=== PATIENT | female | born 1985 | race Caucasian/White ===

== ENCOUNTER 2020-09-26 18:59 | Emergency (ER) | payer OTHER ==
[2020-09-26] MEDS ORDERED: ONDANSETRON 4 MG (ODT) TAB ONE (22:12)
[2020-09-26] MEDS ORDERED: ACETAMINOPHEN 500 MG TAB ONE (22:12)
[2020-09-26 22:27] LABS: Absolute Lymphocytes (CBC) 0.7 K/uL (0.7-4.9); Basophils % 0.4 % (0-1.3); Hematocrit 43.2 % (36.0-45.0); Lymphocytes % 20.7 % (15.3-44.8); MPV 8.3 fL (7.6-11.3); RBC Red Blood Cell Count 5.02 M/uL (3.86-4.86)
[2020-09-26 22:28] LABS: Protime INR 1.11
[2020-09-26 22:47] LABS: ALT/SGPT 187 U/L (12-78); AST/SGOT 126 U/L (15-37); Albumin 3.5 g/dL (3.4-5.0); Alkaline Phosphatase 86 U/L (45-117); BUN Blood Urea Nitrogen 10 mg/dL (7-18); Bicarbonate 25 mmol/L (21-32); Bilirubin Direct 0.3 mg/dL (0-0.2); Bilirubin Total 0.5 mg/dL (0.2-1.0); Glucose Level 97 mg/dL (74-106); Magnesium 1.9 mg/dL (1.8-2.4); Potassium 3.6 mmol/L (3.5-5.1); Protein, Total 7.6 g/dL (6.4-8.2); Sodium Level 140 mmol/L (136-145); Troponin (Emerg Dept Use Only) < 0.02 ng/mL (0.0-0.045)
[2020-09-26] MEDS ORDERED: NA CHLORIDE 0.9% 500 ML ONE (22:54)
--- NOTE | 2020-09-26 23:37 | EDPHYS ---
Physician Documentation [facility] Name: Denise Ross Age: 34 yrs Sex: Female : 1985 Arrival Date: 09/26/2020 Time: 19:22 Bed 8 Private MD: ED Physician Cesar Krishnamurthy HPI: 09/26 22:00 This 34 yrs old Female presents to ER via Ambulatory with complaints of cp Dizziness - covid +. 22:00 The patient presents with dizziness, lightheadedness. cp 22:00 Onset: The symptoms/episode began/occurred gradually, and became worse today. cp Associated signs and symptoms: Pertinent positives: nausea, cough, Pertinent negatives: abdominal pain, chest pain, shortness of breath, syncope. Severity of symptoms: in the emergency department the symptoms are unchanged despite home interventions. Patient's baseline: Neuro: alert and fully oriented, Motor: no deficits, Ambulation: walks without assistance, Speech: normal. 22:00 Patient reports she and her mother were recently diagnosed with COVID-19. cp Historical: - Allergies: 19:22 No Known Allergies; ll1 - PMHx: 19:22 None; ll1 - PSHx: 19:22 Cholecystectomy; knee sx; ll1 - Immunization history:: Flu vaccine is not up to date. - Social history:: Smoking status: Patient denies any tobacco usage or history of. ROS: 22:05 Constitutional: Positive for chills, Negative for fever, poor PO intake. cp 22:05 Eyes: Negative for injury, pain, redness, and discharge. cp 22:05 Respiratory: Positive for cough, Negative for wheezing. 22:05 Abdomen/GI: Positive for nausea, diarrhea, Negative for abdominal pain, constipation. 22:05 Skin: Negative for rash. 22:05 Neuro: Positive for dizziness, headache, weakness, Negative for syncope. 22:05 All other systems are negative. Exam: 22:10 Constitutional: The patient appears in no acute distress, alert, awake, cp non-diaphoretic, non-toxic, well developed, well nourished, obese. 22:10 Head/Face: Normocephalic, atraumatic. cp 22:10 Eyes: Periorbital structures: appear normal, Conjunctiva: normal, no exudate, no injection, Sclera: no appreciated abnormality, Lids and lashes: appear normal, bilaterally. 22:10 ENT: External ear(s): are unremarkable, Nose: is normal, Mouth: Lips: moist, Oral mucosa: moist, Posterior pharynx: Airway: no evidence of obstruction, patent. 22:10 Neck: ROM/movement: is normal, is supple, without pain, no range of motions limitations, no meningismus. 22:10 Chest/axilla: Inspection: normal, Palpation: is normal, no crepitus, no tenderness. 22:10 Cardiovascular: Rate: normal, Rhythm: regular. 22:10 Respiratory: the patient does not display signs of respiratory distress, Respirations: normal, no use of accessory muscles, no retractions, labored breathing, is not present, Breath sounds: are clear throughout, no decreased breath sounds, no stridor, no wheezing. 22:10 Abdomen/GI: Inspection: abdomen appears normal, Bowel sounds: active, all quadrants, Palpation: abdomen is soft and non-tender, in all quadrants. 22:10 Neuro: Orientation: to person, place \T\ time. Mentation: is normal, Cerebellar function: is grossly normal, Motor: moves all fours, strength is normal, Sensation: is normal. 22:16 ECG was reviewed by the Attending Physician. cp Vital Signs: 19:23 BP 122 / 70; Pulse 102; Resp 18; Temp 101.5; Pulse Ox 97% on R/A; Weight 124.74 kg; ll1 Height 5 ft. 2 in. (157.48 cm); Pain 5/10; 23:50 BP 120 / 66; Pulse 89; Resp 17; Temp 98.7; Pulse Ox 97% on R/A; rv 19:23 Body Mass Index 50.30 (124.74 kg, 157.48 cm) ll1 MDM: 21:29 Patient medically screened. edna 22:00 Differential diagnosis: hypovolemia, idiopathic dizziness, near-syncope, , cp sepsis. 23:35 Data reviewed: vital signs, nurses notes, lab test result(s), EKG, radiologic studies, cp plain films. 23:35 Test interpretation: by ED physician or midlevel provider: ECG, plain radiologic cp studies. ED course: VSS. Patient tolerating po fluids. Patient appears non-toxic. Will discharge to home for continued monitoring. 09/26 21:54 Order name: CBC with Diff; Complete Time: 23:11 cp 09/26 23:11 Interpretation: Normal except: WBC 3.5; RBC 5.02. cp 09/26 21:54 Order name: Basic Metabolic Panel; Complete Time: 23:11 cp 09/26 21:54 Order name: LFT's; Complete Time: 23:11 cp 09/26 21:54 Order name: Magnesium; Complete Time: 23:11 cp 09/26 21:54 Order name: PT-INR; Complete Time: 23:11 cp 09/26 21:54 Order name: Troponin (emerg Dept Use Only); Complete Time: 23:11 cp 09/26 21:54 Order name: XRAY Chest (1 view) cp 09/26 21:54 Order name: EKG; Complete Time: 21:55 cp 09/26 21:54 Order name: Cardiac monitoring; Complete Time: 22:17 cp 09/26 21:54 Order name: EKG - Nurse/Tech; Complete Time: 22:17 cp 09/26 21:54 Order name: IV Saline Lock; Complete Time: 22:17 cp 09/26 21:54 Order name: Labs collected and sent; Complete Time: 22:17 cp 09/26 21:54 Order name: O2 Per Protocol; Complete Time: 22:17 cp 09/26 21:54 Order name: O2 Sat Monitoring; Complete Time: 22:17 cp EC:16 Rate is 93 beats/min. Rhythm is regular. MN interval is normal. QRS interval is normal. cp QT interval is normal. T waves are Inverted in leads III, aVR. Interpreted by me. Reviewed by me. Administered Medications: 22:17 Drug: Zofran (Ondansetron) 4 mg Route: PO; mg2 22:17 Drug: NS 0.9% 500 ml Route: IV; Rate: bolus; Site: right forearm; mg2 23:49 Follow up: IV Status: Completed infusion; IV Intake: 500ml rv 22:18 Drug: Tylenol 1000 mg Route: PO; mg2 23:49 Drug: Tessalon Perle 200 mg Route: PO; rv 23:49 Follow up: Response: Medication administered at discharge. rv Disposition: 09/27 08:44 Co-signature as Attending Physician, Cesar Krishnamurthy MD I agree with the assessment and edna plan of care. Disposition: 09/26/20 23:36 Discharged to Home. Impression: Coronavirus infection, unspecified, Pneumonia due to other specified infectious organisms. - Condition is Stable. - Discharge Instructions: Community-Acquired Pneumonia, Adult, COVID-19. - Prescriptions for Albuterol Sulfate 90 mcg/actuation - inhale 1-2 puff by INHALATION route every 4-6 hours; 1 Inhaler. Zofran 4 mg Oral Tablet - take 1 tablet by ORAL route every 12 hours As needed; 20 tablet. - Medication Reconciliation Form, Thank You Letter, Antibiotic Education, Prescription Opioid Use form. - Follow up: Private Physician; When: 2 - 3 days; Reason: Worsening of condition. - Problem is new. - Symptoms have improved. Signatures: Dispatcher [employer] EDMS Cesar Krishnamurthy MD MD cha Page, Corey, PA PA cp Ben Rico, RN RN mg2 Eric Delaney RN RN rv Gui Blackwood RN RN ll1 Corrections: (The following items were deleted from the chart) 09/26 23:51 23:36 09/26/2020 23:36 Discharged to Home. Impression: Coronavirus infection, rv unspecified; Pneumonia due to other specified infectious organisms. Condition is Stable. Forms are Medication Reconciliation Form, Thank You Letter, Antibiotic Education, Prescription Opioid Use. Follow up: Private Physician; When: 2 - 3 days; Reason: Worsening of condition. Problem is new. Symptoms have improved. cp
--- NOTE | 2020-09-26 23:37 | ER ---
Nurse's Notes [facility] Name: Denise Ross Age: 34 yrs Sex: Female : 1985 Arrival Date: 09/26/2020 Time: 19:22 Bed 8 Private MD: Diagnosis: Coronavirus infection, unspecified;Pneumonia due to other specified infectious organisms Presentation: 09/26 19:23 Coronavirus screen: Client denies travel out of the [place] in the last 14 days. chills, ll1 cough unrelated to allergies, diarrhea, difficulty breathing, fatigue, fever, headache, muscle pain, nausea, runny nose, shaking with chills, shortness of breath, sore throat, Client presents with at least one sign or symptom that may indicate coronavirus-19. Client reports previous positive COVID test result. Ebola Screen: Patient denies travel to an Ebola-affected area in the 21 days before illness onset. Initial Sepsis Screen: Does the patient meet any 2 criteria? HR > 90 bpm. No. Patient's initial sepsis screen is negative. Does the patient have a suspected source of infection? Yes: Productive cough/pneumonia. Risk Assessment: Do you want to hurt yourself or someone else? Patient reports no desire to harm self or others. Onset of symptoms was September 21, 2020. 19:23 Method Of Arrival: Ambulatory ll1 19:23 Acuity: BRIANDA 3 ll1 22:54 Chief complaint: Patient states: dizziness. mg2 Historical: - Allergies: 19:22 No Known Allergies; ll1 - PMHx: 19:22 None; ll1 - PSHx: 19:22 Cholecystectomy; knee sx; ll1 - Immunization history:: Flu vaccine is not up to date. - Social history:: Smoking status: Patient denies any tobacco usage or history of. Screenin:54 Abuse screen: Denies threats or abuse. Denies injuries from another. Nutritional mg2 screening: No deficits noted. Tuberculosis screening: No symptoms or risk factors identified. Fall Risk IV access (20 points). Assessment: 22:45 General: Appears in no apparent distress. comfortable, Behavior is calm, cooperative. mg2 Pain: Denies pain. Neuro: Level of Consciousness is awake, alert, obeys commands, Oriented to person, place, time, situation. Neuro: Reports dizziness. Cardiovascular: Capillary refill < 3 seconds Patient's skin is warm and dry. Respiratory: Reports shortness of breath Airway is patent Respiratory effort is even, unlabored, Respiratory pattern is regular, symmetrical. GI: No signs and/or symptoms were reported involving the gastrointestinal system. : No signs and/or symptoms were reported regarding the genitourinary system. EENT: No signs and/or symptoms were reported regarding the EENT system. Derm: Skin is intact, is healthy with good turgor, Skin is pink, warm \T\ dry. normal. Musculoskeletal: Circulation, motion, and sensation intact. Capillary refill < 3 seconds. Vital Signs: 19:23 BP 122 / 70; Pulse 102; Resp 18; Temp 101.5; Pulse Ox 97% on R/A; Weight 124.74 kg; ll1 Height 5 ft. 2 in. (157.48 cm); Pain 5/10; 23:50 BP 120 / 66; Pulse 89; Resp 17; Temp 98.7; Pulse Ox 97% on R/A; rv 19:23 Body Mass Index 50.30 (124.74 kg, 157.48 cm) ll1 ED Course: 19:22 Patient arrived in ED. ll1 19:23 Arm band placed on. ll1 19:24 Triage completed. ll1 21:22 Cesar Mccollum PA is PHCP. cp 21:22 Cesar Krishnamurthy MD is Attending Physician. cp 21:46 Ben Rico, RAFAT is Primary Nurse. mg2 22:24 XRAY Chest (1 view) In Process Unspecified. EDMS 22:30 Inserted saline lock: 20 gauge in right forearm, using aseptic technique. Blood mg2 collected. 22:54 Patient has correct armband on for positive identification. Door closed. mg2 22:54 No provider procedures requiring assistance completed. mg2 23:50 IV discontinued, intact, bleeding controlled, No redness/swelling at site. Pressure rv dressing applied. Administered Medications: 22:17 Drug: Zofran (Ondansetron) 4 mg Route: PO; mg2 22:17 Drug: NS 0.9% 500 ml Route: IV; Rate: bolus; Site: right forearm; mg2 23:49 Follow up: IV Status: Completed infusion; IV Intake: 500ml rv 22:18 Drug: Tylenol 1000 mg Route: PO; mg2 23:49 Drug: Tessalon Perle 200 mg Route: PO; rv 23:49 Follow up: Response: Medication administered at discharge. rv Intake: 23:49 IV: 500ml; Total: 500ml. rv Outcome: 23:36 Discharge ordered by . cp 23:50 Discharged to home ambulatory. rv 23:50 Condition: good 23:50 Condition: good 23:50 Discharge instructions given to patient, Instructed on discharge instructions, follow up and referral plans. medication usage, Demonstrated understanding of instructions, follow-up care, medications, Prescriptions given X 2. 23:51 Patient left the ED. rv Signatures: Dispatcher [employer] EDMS Cesar Mccollum PA PA cp [place]ose, Michele, RN RAFAT mg2 Eric Delaney RN RN rv Gui Blackwood RN RN ll1
[2020-09-26 23:57] VITALS: O2SAT 97
[2020-09-26 23:59] VITALS: BP 120/66; TEMP 98.7
[2020-09-27] MEDS ORDERED: BENZONATATE 100 MG CAP PO ONE (00:01)
--- NOTE | 2020-09-27 07:57 | RAD REPORT ---
EXAM DESCRIPTION: RAD - Chest Single View - 09/26/2020 10:23 pm CLINICAL HISTORY: SOB, COVID positive COMPARISON: None TECHNIQUE: AP portable chest image was obtained 09/26/2020 10:23 pm . FINDINGS: Lung volumes are low and there is significant respiratory motion artifact. No dense mass o r consolidation. Patchy pneumonia changes are suspected in each lower lung field. Heart and vasculatu re are normal. No measurable pleural effusion and no pneumothorax. No acute bony abnormality seen. No acute aortic findings suspected. IMPRESSION: Shallow inspiration, motion degraded film suspicious for bilateral lower lung field pneu monia. As clinically warranted, repeat imaging can be performed to try to eliminate the motion artifact and more accurately assess lung parenchyma.
== END 2020-09-26 23:51 | disposition home or self-care (01) ==
LOC: ER 18:59
DX: U07.1 COVID-19 (principal); J12.82 Pneumonia due to coronavirus disease 2019
CPT/HCPCS: 36415; 71045; 80048; 80076; 83735; 84484; 85025; 85610; 96360; 96361; 99284; J7040

== ENCOUNTER 2020-09-29 10:59 | Emergency (ER) | payer OTHER ==
--- NOTE | 2020-09-29 11:49 | RAD REPORT ---
EXAM DESCRIPTION: Michael Single View09/29/2020 11:38 am CLINICAL HISTORY: Chest pain COMPARISON: September 26 FINDINGS: [id number] bilateral pulmonary opacities. The heart is normal size IMPRESSION: Mild to moderate bilateral pulmonary opacities probably pneumonia
[2020-09-29 12:05] LABS: Absolute Lymphocytes (CBC) 0.7 K/uL (0.7-4.9); Basophils % 0.3 % (0-1.3); Lymphocytes % 24.1 % (15.3-44.8); MPV 8.6 fL (7.6-11.3); RBC Red Blood Cell Count 4.83 M/uL (3.86-4.86)
[2020-09-29 12:10] LABS: Protime INR 1.05
[2020-09-29 12:25] LABS: ALT/SGPT 236 U/L (12-78); AST/SGOT 147 U/L (15-37); Alkaline Phosphatase 90 U/L (45-117); BUN Blood Urea Nitrogen 8 mg/dL (7-18); Bicarbonate 24 mmol/L (21-32); Bilirubin Direct 0.3 mg/dL (0-0.2); Bilirubin Total 0.6 mg/dL (0.2-1.0); Ferritin 756.4 ng/mL (8-388); Glucose Level 86 mg/dL (74-106); Lipase 232 U/L (73-393); Potassium 3.3 mmol/L (3.5-5.1); Protein, Total 7.1 g/dL (6.4-8.2); Sodium Level 139 mmol/L (136-145); Troponin (Emerg Dept Use Only) < 0.02 ng/mL (0.0-0.045)
[2020-09-29] MEDS ORDERED: NA CHLORIDE 0.9% 1,000 ML ONE (12:59)
[2020-09-29] MEDS ORDERED: ONDANSETRON 4 MG/2 ML VIAL ONE (12:59)
--- NOTE | 2020-09-29 13:58 | RAD REPORT ---
EXAM DESCRIPTION: CT - Chest For Pe Angio - 09/29/2020 1:40 pm CLINICAL HISTORY: sob COMPARISON: None. TECHNIQUE: Dynamically enhanced axial 3 mm thick images of the chest were obtained during administra tion of <100> mL Isovue 370 IV contrast. Coronal and oblique reconstruction images were generated and reviewed. Exam utilizes a protocol for optimal evaluation of pulmonary arterial tree. Maximum intensity projections 3D imaging was utilized All CT scans are performed using dose optimization technique as appropriate and may include automated exposure control or mA/KV adjustment according to patient size. FINDINGS: The opacification of the pulmonary arteries is poor. A thoracic aortic aneurysm is not noted. A pleural effusion is not seen. A pericardial effusion is not seen. Mild to moderate bilateral ground-glass opacities within the lungs IMPRESSION: Poor opacification of the pulmonary arteries renders detection of a pulmonary embolus no ndiagnostic. Mild to moderate bilateral ground-glass opacities within the lungs can be seen with Covid pneumonia
--- NOTE | 2020-09-29 14:38 | ER ---
Nurse's Notes [facility] Name: Denise Ross Age: 34 yrs Sex: Female : 1985 Arrival Date: 09/29/2020 Time: 11:02 Bed 15 Private MD: Diagnosis: Coronavirus infection, unspecified;Viral pneumonia, unspecified Presentation: 09/29 11:16 Chief complaint: Patient states: "I was tested COVID +on Thursday and I am feeling worse jd3 with shortness of breath, body aches/chest pain/ back pain. I am also nauseous and feeling like I need to pass out.". Coronavirus screen: Client presents with at least one sign or symptom that may indicate coronavirus-19. Standard/surgical mask placed on the client. Provider contacted for isolation considerations. Client reports previous positive COVID test result. Ebola Screen: Patient negative for fever greater than or equal to 101.5 degrees Fahrenheit, and additional compatible Ebola Virus Disease symptoms. Initial Sepsis Screen: Does the patient meet any 2 criteria? No. Patient's initial sepsis screen is negative. Does the patient have a suspected source of infection? No. Patient's initial sepsis screen is negative. Risk Assessment: Do you want to hurt yourself or someone else? Patient reports no desire to harm self or others. Onset of symptoms was September 22, 2020. 11:16 Method Of Arrival: Ambulatory jd3 11:16 Acuity: BRIANDA 3 jd3 Triage Assessment: 15:15 Respiratory: the patient has moderate shortness of breath. 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 - Social history:: Smoking status: Patient/guardian denies using tobacco, the patient reports quitting approximately 2 years ago. Screenin:07 Abuse screen: Denies threats or abuse. Denies injuries from another. Nutritional iw screening: No deficits noted. Tuberculosis screening: No symptoms or risk factors identified. Fall Risk IV access (20 points). Assessment: 12:07 General: Appears in no apparent distress. Behavior is calm, cooperative. General: iw Reports feeling ill for 2-3 days, fatigue for 2-3 days. Pain: Complains of pain in chest. Neuro: Level of Consciousness is awake, alert, obeys commands, Oriented to person, place, time, situation, Moves all extremities. Full function. Cardiovascular: Rhythm is regular. Respiratory: Airway is patent Respiratory effort is even, Respiratory pattern is regular, Breath sounds are diminished bilaterally. GI: Reports nausea. Derm: Skin is intact, is healthy with good turgor. Musculoskeletal: Range of motion: intact in all extremities. 14:28 Reassessment: Patient appears in no apparent distress at this time. pt ambulated around iw nurse's station, O2 sat remains at 96% on RA. Vital Signs: 11:21 BP 123 / 70; Pulse 98; Resp 20 S; Temp 99.6(O); Pulse Ox 93% on R/A; Weight 124.74 kg jd3 (R); Height 5 ft. 2 in. (157.48 cm) (R); Pain 6/10; 14:10 BP 137 / 88; Pulse 95; Resp 18 S; Pulse Ox 98% on R/A; iw 11:21 Body Mass Index 50.30 (124.74 kg, 157.48 cm) jd3 ED Course: 11:02 Patient arrived in ED. as 11:03 Alba Warren [facility]C [facility] kb 11:03 Perez Rea MD is Attending Physician. kb 11:13 Teresa Lo, RN is Primary Nurse. iw 11:18 Triage completed. jd3 11:21 Arm band placed on. jd3 11:38 CXR XRAY In Process Unspecified. EDMS 11:38 Initial lab(s) drawn, by ED staff, sent to lab. Inserted saline lock: 22 gauge in right iw hand, using aseptic technique. IV inserted by SHAVONNE, medical technologist generalist. 12:15 Patient has correct armband on for positive identification. iw 13:40 CT Chest For PE Angio In Process Unspecified. EDMS 15:14 No provider procedures requiring assistance completed. IV discontinued, intact, iw bleeding controlled, No redness/swelling at site. Pressure dressing applied. Administered Medications: 12:50 Drug: Zofran (Ondansetron) 4 mg Route: IVP; Site: right hand; iw 12:50 Drug: NS 0.9% 1000 ml Route: IV; Rate: 1000 ml; Site: right hand; iw Outcome: 14:38 Discharge ordered by . kb 15:15 Discharged to home via wheelchair, with family. iw 15:15 Condition: good 15:15 Discharge instructions given to patient, Instructed on discharge instructions, follow up and referral plans. medication usage, Demonstrated understanding of instructions, follow-up care, medications, Prescriptions given X 1. 15:31 Patient left the ED. iw Signatures: Dispatcher [employer] EDMS Alba Warren, PALLETISER OPERATOR-C PALLETISER OPERATOR-Marylin Gasca Irene, RN RN Giuliano Acevedo RN RN jd3
--- NOTE | 2020-09-29 14:39 | EDPHYS ---
Physician Documentation [facility] Name: Denise Ross Age: 34 yrs Sex: Female : 1985 Arrival Date: 09/29/2020 Time: 11:02 Bed 15 Private MD: ED Physician Perez Rea HPI: 09/29 15:30 This 34 yrs old Female presents to ER via Ambulatory with complaints of kb Shortness Of Breath - covid+, Dizziness, Nausea, Weakness. 15:30 The patient has shortness of breath with light activity. Onset: The symptoms/episode kb began/occurred 4 day(s) ago. Duration: The symptoms are continuous. The patient's shortness of breath is aggravated by exertion, is alleviated by rest. Associated signs and symptoms: Pertinent positives: non-productive cough. Severity of symptoms: At their worst the symptoms were moderate in the emergency department the symptoms are unchanged. The patient has not experienced similar symptoms in the past. The patient has been recently seen at the [facility] Emergency Department, this week. Pt reports she was diagnosed with COVID 4 days ago. Came in today for nausea, cough, dyspnea on exertion. . [employer]: 11:21 LMP 09/21/2020 jd3 Historical: - Allergies: 11:21 No Known Allergies; jd3 - Home Meds: 11:21 sertraline oral oral [Active]; jd3 - PMHx: 11:21 None; jd3 - PSHx: 11:21 Cholecystectomy; knee sx; jd3 - Immunization history:: Adult Immunizations up to date. - Social history:: Smoking status: Patient/guardian denies using tobacco, the patient reports quitting approximately 2 years ago. ROS: 15:28 Cardiovascular: Negative for chest pain, palpitations, and edema, Back: Negative for kb injury and pain, MS/Extremity: Negative for injury and deformity, Skin: Negative for injury, rash, and discoloration. 15:28 Constitutional: Positive for body aches, fatigue, malaise, poor PO intake. 15:28 Respiratory: Positive for cough, dyspnea on exertion. 15:28 Abdomen/GI: Positive for nausea. Exam: 15:29 Constitutional: This is a well developed, well nourished patient who is awake, alert, kb and in no acute distress. Head/Face: Normocephalic, atraumatic. Chest/axilla: Normal chest wall appearance and motion. Nontender with no deformity. No lesions are appreciated. Cardiovascular: Regular rate and rhythm with a normal S1 and S2. No gallops, murmurs, or rubs. Normal PMI, no JVD. No pulse deficits. Respiratory: Lungs have equal breath sounds bilaterally, clear to auscultation and percussion. No rales, rhonchi or wheezes noted. No increased work of breathing, no retractions or nasal flaring. Abdomen/GI: Soft, non-tender, with normal bowel sounds. No distension or tympany. No guarding or rebound. No evidence of tenderness throughout. Skin: Warm, dry with normal turgor. Normal color with no rashes, no lesions, and no evidence of cellulitis. MS/ Extremity: Pulses equal, no cyanosis. Neurovascular intact. Full, normal range of motion. Neuro: Awake and alert, GCS 15, oriented to person, place, time, and situation. Cranial nerves II-XII grossly intact. Motor strength 5/5 in all extremities. Sensory grossly intact. Cerebellar exam normal. Normal gait. Vital Signs: 11:21 BP 123 / 70; Pulse 98; Resp 20 S; Temp 99.6(O); Pulse Ox 93% on R/A; Weight 124.74 kg jd3 (R); Height 5 ft. 2 in. (157.48 cm) (R); Pain 6/10; 14:10 BP 137 / 88; Pulse 95; Resp 18 S; Pulse Ox 98% on R/A; iw 11:21 Body Mass Index 50.30 (124.74 kg, 157.48 cm) jd3 MDM: 11:08 Patient medically screened. kb 14:35 Data reviewed: vital signs, nurses notes. Data interpreted: Pulse oximetry: on room air kb is 98 %. Interpretation: normal. Counseling: I had a detailed discussion with the patient and/or guardian regarding: the historical points, exam findings, and any diagnostic results supporting the discharge/admit diagnosis, lab results, radiology results, the need for outpatient follow up, a family practitioner, to return to the emergency department if symptoms worsen or persist or if there are any questions or concerns that arise at home. 15:29 ED course: Maintained oxygen level of 95-96% while ambulating around nurse's station.. kb 09/29 11:15 Order name: Blood Culture Adult (2) kb 09/29 11:15 Order name: BMP kb 09/29 11:15 Order name: C-Reactive Protein kb 09/29 11:15 Order name: CBC with Diff kb 09/29 11:15 Order name: Ferritin kb 09/29 11:15 Order name: Lactate kb 09/29 11:15 Order name: LFT's kb 09/29 11:15 Order name: Lipase kb 09/29 11:15 Order name: Procalcitonin kb 09/29 11:15 Order name: PT-INR kb 09/29 11:15 Order name: Ptt, Activated; Complete Time: 12:27 kb 09/29 11:15 Order name: Troponin (emerg Dept Use Only); Complete Time: 12:27 kb 09/29 11:16 Order name: Blood Culture EDMS 09/29 11:16 Order name: Basic Metabolic Panel; Complete Time: 12:27 EDMS 09/29 11:15 Order name: CXR XRAY; Complete Time: 11:51 kb 09/29 11:16 Order name: C-Reactive Protein; Complete Time: 12:27 EDMS 09/29 11:16 Order name: CBC with Automated Diff; Complete Time: 12:15 EDMS 09/29 11:16 Order name: Ferritin; Complete Time: 12:27 EDMS 09/29 11:16 Order name: Lactate; Complete Time: 12:27 EDMS 09/29 11:16 Order name: Liver (Hepatic) Function; Complete Time: 12:27 EDMS 09/29 11:16 Order name: Lipase; Complete Time: 12:27 EDMS 09/29 11:16 Order name: Procalcitonin; Complete Time: 13:48 EDMS 09/29 11:16 Order name: Protime (+INR); Complete Time: 12:27 EDMS 09/29 12:05 Order name: D-Dimer; Complete Time: 12:27 EDMS 09/29 13:06 Order name: CT Chest For PE Angio; Complete Time: 14:00 kb 09/29 13:39 Order name: Urine Dipstick--Ancillary (enter results) eb 09/29 13:39 Order name: Urine --Ancillary (enter results) eb 09/29 13:40 Order name: Urine Dipstick-Ancillary EDMS 09/29 13:40 Order name: Urine --Ancillary [facility] 09/29 11:15 Order name: EKG - Nurse/Tech; Complete Time: 12:06 kb 09/29 11:15 Order name: EKG; Complete Time: 11:16 kb 09/29 11:15 Order name: Cardiac monitoring; Complete Time: 12:46 kb 09/29 11:15 Order name: Droplet/Contact Precautions; Complete Time: 12:45 kb 09/29 11:15 Order name: IV Start; Complete Time: 12:45 kb 09/29 11:15 Order name: Labs collected and sent; Complete Time: 12:06 kb 09/29 11:15 Order name: O2 Per Protocol; Complete Time: 12:05 kb 09/29 11:15 Order name: O2 Sat Monitoring; Complete Time: 12:05 kb 09/29 11:16 Order name: Oxygen; Complete Time: 12:05 kb 09/29 13:12 Order name: Urine Test (obtain specimen); Complete Time: 13:34 kb Administered Medications: 12:50 Drug: Zofran (Ondansetron) 4 mg Route: IVP; Site: right hand; 12:50 Drug: NS 0.9% 1000 ml Route: IV; Rate: 1000 ml; Site: right hand; Disposition: 16:17 Co-signature as Attending Physician, Perez Rea MD. rn Disposition: 09/29/20 14:38 Discharged to Home. Impression: Coronavirus infection, unspecified, Viral pneumonia, unspecified. - Condition is Stable. - Discharge Instructions: Viral Respiratory Infection, [id number], COVID-19. - Prescriptions for promethazine 25 mg Oral Tablet - take 1 tablet by ORAL route every 8 hours As needed; 16 tablet. - Medication Reconciliation Form, Thank You Letter, Antibiotic Education, Prescription Opioid Use form. - Follow up: Emergency Department; When: As needed; Reason: Worsening of condition. Follow up: Private Physician; When: 2 - 3 days; Reason: Recheck today's complaints, Continuance of care, Re-evaluation by your physician. Signatures: Dis[facility] Warren, DARRELL SWEENEY-Teresa Feliciano, RN Perez Marques MD MD rn Davies, Jonathon, RN RN jd3 Corrections: (The following items were deleted from the chart) 12:06 12:02 D-DIMER+[id number].[id number] ordered. EDMI EDMS 15:31 14:38 09/29/2020 14:38 Discharged to Home. Impression: Coronavirus infection, iw unspecified; Viral pneumonia, unspecified. Condition is Stable. Forms are Medication Reconciliation Form, Thank You Letter, Antibiotic Education, Prescription Opioid Use. Follow up: Emergency Department; When: As needed; Reason: Worsening of condition. Follow up: Private Physician; When: 2 - 3 days; Reason: Recheck today's complaints, Continuance of care, Re-evaluation by your physician. kb
[2020-09-29 15:36] VITALS: TEMP 99.6
[2020-09-29 15:37] VITALS: BP 137/88; O2SAT 98
[2020-09-29 15:45] LABS: Urine Blood NEGATIVE (NEG); Urine Glucose NEGATIVE (NEG); Urine Protein 1+ (NEG); Urine Specific Gravity 1.025 (1.005-1.030); Urine pH 6.5 (5.0-7.0)
== END 2020-09-29 15:31 | disposition home or self-care (01) ==
LOC: ER 10:59
DX: U07.1 COVID-19 (principal); J12.9 Viral pneumonia, unspecified; Z87.891 Personal history of nicotine dependence
CPT/HCPCS: 93005; 87040 ×2; 85025; 80048; 36415; 81025; 85610; 85379; 80076; 83605; 85730; 81003; 84484; 82728; 83690; 84145; 86140; 71275; 71045; 96374; 99284; Q9967; J7030; J2405